=== PATIENT | male | born 1960 | race Caucasian/White ===

== ENCOUNTER → 2016-08-12 | Outpatient (CLI) | payer OTHER ==
[~2016-08-12] MED LIST: ASPIR 8181 M1 PO; QUESTRAN PACKET4 GM PO; Vicodin,Lortab 5/500 PO
[2016-08-12 09:14] LABS: HEMATOCRIT 45.2 % (38.0-50.0); MCH 31.8 PG (29.0-34.0); MCHC 34.7 G/DL (30.0-36.0); MCV 91.5 FL (86-99); MEAN PLAT.VOLUME 8.8 uM^3 (9.0-12.4); PLATELET COUNT 234 K/uL (156-360); RBC DIS.WIDTH-CV 12.5 % (11.8-14.6); RED BLOOD COUNT 4.94 M/uL (4.00-5.50); WHITE BLOOD COUNT 5.5 K/uL (4.1-10.2)
[2016-08-12 09:24] LABS: INTER. NORMALIZED RATIO 1.1; PROTHROMBIN TIME 10.9 (9.2-11.2); PTT 24.9 (25-32)
[2016-08-14 17:42] LABS: Flow Clinical Information NOT PROVIDED (()); Flow Number of Markers 22 (()); Flow Spec Viability 66 % (()); Flow Specimen Type LYMPH NODE (())
== END | disposition home or self-care (01) ==
LOC: OPR 08:39 → EDSTATUS 09:00
PROVIDERS: Internal Medicine Hematology & Oncology; Radiology Diagnostic Radiology
PROC: 0WB83ZX Excision of Chest Wall, Percutaneous Approach, Diagnostic (ICD-10-PCS; principal; 2016-08-12)
DX: R59.1 Generalized enlarged lymph nodes (principal); E78.89 Other lipoprotein metabolism disorders; Z85.038 Personal history of other malignant neoplasm of large intestine
CPT/HCPCS: 77012; 85027; 85610; 85730; 88184 90; 88185 90; 88189 90; 88305; J3010